=== PATIENT | female | born 1995 | race Caucasian/White ===

== ENCOUNTER 2018-06-11 20:34 | Emergency (ER) | END 2018-06-12 | disposition home or self-care (01) ==

== ENCOUNTER 2018-06-12 00:09 | Outpatient (CLI) | END 2018-06-12 02:28 | disposition home or self-care (01) ==

== ENCOUNTER 2018-09-22 10:18 | Inpatient (IN) | END 2018-09-24 13:25 | disposition home or self-care (01) | DRG 807 ==

== ENCOUNTER 2018-12-13 09:15 | Emergency (ER) | payer OTHER ==
[~2018-12-13] VITALS: Ht 167.6 cm; Wt 71.7 kg
[~2018-12-13 09:15] MED LIST: PREN-6 PO
[2018-12-13 09:27] VITALS: Ht 167.6 cm; Wt 71.7 kg
[2018-12-13] MEDS ORDERED: ONDANSETRON (ODT) 4 MG TAB ODT STA (10:59)
[2018-12-13] MEDS ORDERED: SULF1TAB31 PO (11:00)
[2018-12-13] MEDS ORDERED: CEPH-443 PO (11:00)
[2018-12-13] MEDS ORDERED: NAPR-985 PO (11:00)
[2018-12-13] MEDS ORDERED: LIDOCAINE 1% (MPF) 5 ML VIAL INJ ONE ×2 (11:00)
[2018-12-13] MEDS ORDERED: HYDROCODONE/APAP (5/325) TAB PO ONE (11:00)
[2018-12-13] MEDS ORDERED: CEFTRIAXONE 1 GM INJ IM ONE (11:00)
[2018-12-13 11:40] VITALS: BP 138/62; PULSE 77; RESP 18
--- NOTE | 2018-12-13 12:57 | ERD ---
ER Documentation Chief Complaint Chief Complaint Complains of an abscess to to right butt cheek x 2 days HPI 23-year-old female presenting with an abscess to her right buttock times 4 days. Patient denies any rectal pain or fevers today. Patient is not currently breast-feeding. She states is been there for the last 4 days. Has not taken medications for symptoms. Denies medical problems. NKDA. Surgical history denies. Social history denies ROS All systems reviewed and are negative except as per history of present illness. Medications Home Meds Active Scripts Naproxen* (Naprosyn*) 500 Mg Tablet, 500 MG PO BID PRN for PAIN AND/OR INF LAMMATION, #30 TAB Prov:АННА BIRD PA-C 12/13/18 Sulfamethoxazole/Trimethoprim* (Bactrim Ds* Tablet) 1 Each Tablet, 1 TAB PO BID, #14 TAB Prov:АННА BIRD PA-C 12/13/18 Cephalexin* (Keflex*) 500 Mg Capsule, 500 MG PO QID for 7 Days, CAP Prov:АННА BIRD PA-C 12/13/18 Reported Medications Vits #93-Iron Fum-FA ( Formula) 1 Each Tablet, 1 TAB PO DAILY, TAB 06/12/18 Allergies Allergies: Coded Allergies: No Known Allergy (Unverified , 12/13/18) PMhx/Soc History of Surgery: No Anesthesia Reaction: No Hx Neurological Disorder: No Hx Respiratory Disorders: No Hx Cardiac Disorders: No Hx Psychiatric Problems: No Hx Miscellaneous Medical Probl: Yes Hx Alcohol Use: No Hx Substance Use: No Hx Tobacco Use: No FmHx Family History: No diabetes, No coronary disease, No other Physical Exam Vitals Vital Signs Date Temp Pulse Resp B/P (MAP) Pulse Ox O2 O2 Flow FiO2 Time Delivery Rate 12/13/18 98.9 77 18 138/62 98 Room Air 11:40 (87) 12/13/18 99.9 125 20 141/63 98 09:27 (89) Physical Exam GENERAL: The patient is well-appearing, well-nourished, in no acute distress CHEST: Clear to auscultation bilaterally. There are no rales, wheezes or rhonchi. HEART: Regular rate and rhythm. No murmurs, clicks, rubs or gallops. ABDOMEN:Soft, nontender and nondistended. Good bowel sounds. No rebound or guarding. No gross peritonitis. No gross organomegaly or masses. No Franco sign or McBurney point tenderness. SKIN: Erythema noted to the right buttock with no pain around the rectal or anal region. Results 24 hrs Current Medications Medications Dose Sig/Jose Start Time Status Last (Trade) Ordered Route PRN Stop Time Admin Dose Reason Admin Lidocaine 5 ml ONCE ONCE 12/13/18 DC 12/13/18 (Xylocaine INJ 11:00 12/13/18 11:25 1% (Mpf)) 11:01 Ceftriaxone 1 gm ONCE ONCE 12/13/18 DC 12/13/18 Sodium IM 11:00 12/13/18 11:25 (Rocephin) 11:01 Lidocaine 5 ml ONCE ONCE 12/13/18 DC (Xylocaine INJ 11:00 12/13/18 1% (Mpf)) 11:01 1 tab ONCE ONCE 12/13/18 DC 12/13/18 Acetaminophen PO 11:00 12/13/18 11:25 / 11:01 Hydrocodone Bitart ([place] (5/325)) Ondansetron 4 mg ONCE STAT 12/13/18 DC 12/13/18 HCl (Zofran ODT 10:59 12/13/18 11:25 Odt) 11:00 Procedures/MDM Abscess Incision and Drainage with irrigation by me: Location: Right buttock Anesthesia: 3 cc local 1% Lidocaine Technique: Irrigated. Disrupted loculations w/ instrumentation Packing: None Complications: Neurovascularly intact post procedure 48 hour wound check. Scar minimization instructions given. Patient's skin symptoms have stabilized while they have been evaluated in the department and are appropriate for outpatient care and work up. Exam and w/u not consistent w/ sepsis, deep space infection, or foreign body. ER course: [place] and Rocephin given ED. MDM: 23-year-old female presenting with abscess. I have low suspicion for deep tracking abscess. Copious drainage was extracted from the abscess in the ER. Patient is discharged with antibiotics and pain medication. Patient is told to return if symptoms change or worsen. Patient is recommended to apply warm compresses and with soap and water. All questions answered at discharge Departure Diagnosis: Primary Impression: Abscess Condition: Stable Patient Instructions: Abscess, Incision And Drainage Referrals: [facility] YOU HAVE RECEIVED A MEDICAL SCREENING EXAM AND THE RESULTS INDICATE THAT YOU DO NOT HAVE A CONDITION THAT REQUIRES URGENT TREATMENT IN THE EMERGENCY DEPARTMENT. FURTHER EVALUATION AND TREATMENT OF YOUR CONDITION CAN WAIT UNTIL YOU ARE SEEN IN YOUR DOCTORS OFFICE WITHIN THE NEXT 1-2 DAYS. IT IS YOUR RESPONSIBILITY TO M FEMI AN APPOINTMENT FOR FOLOW-UP CARE. IF YOU HAVE A PRIMARY DOCTOR --you should call your primary doctor and schedule an appointment IF YOU DO NOT HAVE A PRIMARY DOCTOR YOU CAN CALL OUR PHYSICIAN REFERRAL HOTLINE AT IF YOU CAN NOT AFFORD TO SEE A PHYSICIAN YOU CAN CHOSE FROM THE FOLLOWING [facility] [address] [facility]. [facility] [address] [facility]. [facility] [address] [facility] [facility] [address] [facility]. [facility] [address] [facility]. [facility]. [address] Additional Instructions: FOLLOW UP WITH YOUR PRIMARY CARE PHYSICIAN TOMORROW.Return to this facility if you are not improving as expected. АННА BIRD PA-C Dec 13, 2018 12:57
== END 2018-12-13 11:42 | disposition home or self-care (01) ==
LOC: FTE 09:15
DX: L02.31 Cutaneous abscess of buttock (principal)
CPT/HCPCS: 10060; 96372; J0696; Z7502; Z7610

== ENCOUNTER 2019-03-28 13:29 | Emergency (ER) | payer OTHER ==
[~2019-03-28] VITALS: Ht 162.6 cm; Wt 73.5 kg
[~2019-03-28 13:29] MED LIST changes: +CEPH-443 PO; +NAPR-985 PO; +SULF1TAB31 PO
[2019-03-28 13:39] VITALS: BP 149/80; PULSE 96; RESP 16; Ht 162.6 cm; Wt 73.5 kg
--- NOTE | 2019-03-28 14:22 | ERD ---
ER Documentation Chief Complaint Chief Complaint cough and sore throat x2 days HPI 24-year-old female, previously healthy, presents to the emergency department, complaining of 3 days with worsening of upper respiratory symptoms that is started approximately 1 week ago, during the last 2 days, the patient reports worsening of cough, worse at night, associated with sore throat, tactile fever and general malaise. The patient has been taking [id number] medications without improvement of the symptoms. She denies chest pain, no shortness of breath, no leg swelling. ROS All systems reviewed and are negative except as per history of present illness. Medications Home Meds Active Scripts Ibuprofen* (Motrin*) 400 Mg Tab, 400 MG PO Q6H PRN for PAIN AND OR ELEVATED TEM P, #20 TAB Prov:ASHLY SINCLAIR MD 03/28/19 Promethazine HCl/Codeine (Prometh-Codein 6.25-10 mg/5 ml) 5 Ml Syrup, 5 ML PO QHS PRN for COUGH, #60 ML Prov:ASHLY SINCLAIR MD 03/28/19 Albuterol Sulfate* (Proair HFA*) 8.5 Gm Hfa.aer.ad, 2 PUFF INH Q4H PRN for WHEEZING AND SOB, #1 INHALER Prov:ASHLY SINCLAIR MD 03/28/19 Azithromycin* (Zithromax*) 250 Mg Tablet, 250 MG PO .ZPACK DIRECTED, #6 TAB TAKE 500 MG (2 TABS) THE FIRST DAY THEN 250 MG (1 TAB) DAYS 2-5 Prov:ASHLY SINCLAIR MD 03/28/19 Amoxicillin* (Amoxicillin*) 500 Mg Cap, 500 MG PO TID for 7 Days, CAP Prov:ASHLY SINCLAIR MD 03/28/19 Naproxen* (Naprosyn*) 500 Mg Tablet, 500 MG PO BID PRN for PAIN AND/OR INFLAMMATION, #30 TAB Prov:АННА BIRD PA-C 12/13/18 Sulfamethoxazole/Trimethoprim* (Bactrim Ds* Tablet) 1 Each Tablet, 1 TAB PO BID, #14 TAB Prov:АННА BIRD PA-C 12/13/18 Cephalexin* (Keflex*) 500 Mg Capsule, 500 MG PO QID for 7 Days, CAP Prov:BIRDАННА PA-C 12/13/18 Reported Medications Vits #93-Iron Fum-FA ( Formula) 1 Each Tablet, 1 TAB PO DAILY, TAB 06/12/18 Allergies Allergies: Coded Allergies: No Known Allergy (Unverified , 12/13/18) PMhx/Soc History of Surgery: No Anesthesia Reaction: No Hx Neurological Disorder: No Hx Respiratory Disorders: No Hx Cardiac Disorders: No Hx Psychiatric Problems: No Hx Miscellaneous Medical Probl: Yes Hx Alcohol Use: No Hx Substance Use: No Hx Tobacco Use: No FmHx Family History: No diabetes, No coronary disease Physical Exam Vitals Vital Signs Date Temp Pulse Resp B/P (MAP) Pulse Ox O2 O2 Flow FiO2 Time Delivery Rate 03/28/19 100.2 96 16 149/80 96 13:39 (103) Physical Exam Patient is in moderate distress due to cough. EYES: PERRLA, EOMI, injected sclerae EARS: Canals clear, erythematous tympanic membranes THROAT: Erythematous oropharynx. NECK: Supple, No lymphadenopathy. Full ROM without pain or tenderness. HEART: RRR, no rubs, murmurs, clicks or gallops. LUNGS: Bilateral rhonchi to auscultation. ABDOMEN: Soft, non-tender without masses or hepatosplenomegaly. EXTREMITIES: No edema bilaterally. BACK: Full ROM, no deformity, normal back exam NEURO: Cranial nerves grossly intact, no motor or sensory deficit Procedures/MDM At the time of discharge, patient with nontoxic appearance, vital signs stable, no respiratory distress. Differential diagnosis include but not limited to: upper vs lower respiratory infection bacterial/viral/fungal. Asthma, COPD, pneumonitis, allergies, GERD. Less likely pulmonary embolism, cardiac related or malignancy, but still is a possibility. Physical examination and clinical presentation consistent most likely with viral infection with early superimposed bacterial infection. During the ED course the patient remained stable, no new complaints. Treatment options and clinical impression discussed with the patient who agrees with management. The patient is stable to be treated outpatient and will be discharged home. Some side effects of prescribed medications (headache, rash, nausea, vomiting, diarrhea, interactions with other medications) were reviewed. The patient needs to follow up with the primary care provider in the next 48h. If symptoms persist, worsen or new symptoms develop, then patient should return to the ED immediately. Disclaimer: Inadvertent spelling and grammatical errors are likely due to EHR/dictation software use and do not reflect on the overall quality of patient care. Also, please note that the electronic time recorded on this note does not necessarily reflect the actual time of the patient encounter. Departure Diagnosis: Primary Impression: Cough Additional Impressions: Fever Abnormal respiratory sounds Condition: Stable Additional Instructions: Thank you very much for allowing us to participate in your care. Your health and safety is our top priority at [facility]. The evaluation in the emergency department has been done to rule out an acute emergency. Chronic, [id number] conditions may have not been evaluated; therefore, you need to follow up with a primary care provider in the next 48h. If symptoms persist, worsen or new symptoms develop, then patient should return to the ED immediately. Call your primary care doctor TOMORROW for an appointment during the next 2-4 days and bring all the information provided. Have prescriptions filled and follow precisely the directions on the label. If the symptoms get worse and your provider is unavailable, return to the Emergency Department immediately. ASHLY SINCLAIR MD Mar 28, 2019 14:22
[2019-03-28] MEDS ORDERED: AZIT250T PO (14:25)
[2019-03-28] MEDS ORDERED: ALBU8.5H8 INH (14:25)
[2019-03-28] MEDS ORDERED: IBUP-1561 PO (14:25)
[2019-03-28] MEDS ORDERED: AMOX500C2 PO (14:25)
[2019-03-28] MEDS ORDERED: PROM5SYR2 PO (14:25)
== END 2019-03-28 14:43 | disposition home or self-care (01) ==
LOC: FTE 13:29
DX: R05 Cough (principal); R50.9 Fever, unspecified; R09.89 Other specified symptoms and signs involving the circulatory and respiratory systems
CPT/HCPCS: 99283